=== PATIENT | male | born 1995 | race African-American/Black ===

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

== ENCOUNTER 2017-08-22 12:13 | Emergency (ER) | payer BC, OTHER ==
[2017-08-22 12:14] VITALS: BP 170/65; PULSE 148; RESP 18; TEMP 99.2; O2SAT 96
[2017-08-22] MEDS ORDERED: SODIUM CHLOR 0.9% 1000 ML INJ 1,000 ML IV ONE ×2 (13:16→13:30)
[2017-08-22 13:28] VITALS: BP_SYST 120; BP_SYST 130; BP_DIAS 59; BP_DIAS 63; RESP 20
[2017-08-22] MEDS ORDERED: SODIUM CHLORIDE 0.9% FLUSH 10 ML FLUSH IVF PRN (13:30)
--- NOTE | 2017-08-22 13:59 | RADRPT ---
EXAM DATE/TIME: 08/22/2017 13:45 [facility] COMPARISON: No previous studies available for comparison. INDICATIONS : Dizziness and syncope. Fall, hit posterior head. RADIATION DOSE: 38.65 CTDIvol (mGy) MEDICAL HISTORY : None SURGICAL HISTORY : None. ENCOUNTER: Initial ACUITY: 1 day PAIN SCALE: 0/10 LOCATION: cranial TECHNIQUE: Multiple contiguous axial images were obtained of the head. Using automated exposure control and adj ustment of the mA and/or kV according to patient size, radiation dose was kept as low as reasonably a chievable to obtain optimal diagnostic quality images. DICOM format image data is available electro nically for review and comparison. FINDINGS: CEREBRUM: The ventricles are normal for age. No evidence of midline shift, mass lesion, hemorrhage or acute in farction. No extra-axial fluid collections are seen. POSTERIOR FOSSA: The cerebellum and brainstem are intact. The 4th ventricle is midline. The cerebellopontine angle i s unremarkable. EXTRACRANIAL: The visualized portion of the orbits is intact. SKULL: The calvaria is intact. No evidence of skull fracture. CONCLUSION: No acute intracranial disease. Fortino Box MD on August 22, 2017 at 13:53 Board Certified Radiologist. This report was verified electronically.
[2017-08-22] MEDS ORDERED: KETOROLAC TROMETHAMINE 30 MG/ML (IVP) VIAL IV PUSH ONE (14:00)
[2017-08-22 14:06] LABS: AUTOMATED NEUTROPHIL # 6.6 TH/MM3 (1.8-7.7); BASOPHIL # 0.1 TH/MM3 (0-0.2); BASOPHIL % 0.5 % (0.0-2.0); EOSINOPHIL % 0.5 % (0.0-4.0); HEMATOCRIT 44.3 % (39.0-51.0); HEMO FLAGS DIFF FINAL; LYMPH % 18.1 % (9.0-44.0); LYMPHOCYTE # 1.8 TH/MM3 (1.0-4.8); MEAN CELL VOLUME 87.1 FL (80.0-100.0); MEAN CORPUSCULAR HEMOGLOBIN 30.1 PG (27.0-34.0); MEAN CORPUSCULAR HGB CONC 34.6 % (32.0-36.0); MONO % 13.1 % (0.0-8.0); NEUT % 67.8 % (16.0-70.0); PLATELET COUNT 236 TH/MM3 (150-450); RED BLOOD COUNT 5.09 MIL/MM3 (4.50-5.90); RED CELL DISTRIBUTION WIDTH 12.8 % (11.6-17.2); WHITE BLOOD COUNT 9.8 TH/MM3 (4.0-11.0)
--- NOTE | 2017-08-22 14:10 | PD ---
HPI Chief Complaint: Syncope/Near-Syncope Time Seen by Provider: 13:16 Travel History International Travel<30 days: No Contact w/Intl Traveler<30days: No Traveled to known affect area: No History of Present Illness HPI Patient is a 22-year-old male who presents to emergency room for evaluation of head injury. Patient reports that he has had a sore throat, low-grade fevers, URI for the past few days. Patient reports that he was in his dorm today and suffered a syncopal episode. Patient reports that he did hit his head, he was unsure how long he was unconscious, reports that he came to the emergency room for evaluation as he is concern for possible head injury. Patient reports that he has of moderate headache at this time, reports no fevers, reports chills. Patient denies any chest pain or shortness of breath. Denies any abdominal pain , denies n/v. Patient reports that he is currently not on any medications at this time. Patient reports that he currently does not have any medical problems and does not take any medicines at this time. [facility] Past Medical History Medical History: Denies Significant Hx Diabetes: No Diminished Hearing: No Past Surgical History Surgical History: No Previous Surgery Social History Alcohol Use: No Tobacco Use: No Substance Use: No Allergies-Medications (Allergen,Severity, Reaction): Coded Allergies: No Known Allergies (Unverified , 12/03/16) Reported Meds & Prescriptions Reported Meds & Active Scripts Active No Active Prescriptions or Reported Medications Review of Systems General / Constitutional: No: Fever Eyes: No: Visual changes HENT: Positive: Headaches, Lightheadedness, Sore Throat, Congestion, No: Neck Pain Cardiovascular: No: Chest Pain or Discomfort Respiratory: Positive: Cough, No: Shortness of Breath, Wheezing, Sneezing Gastrointestinal: No: Nausea, Vomiting, Abdominal Pain Genitourinary: No: Dysuria Musculoskeletal: No: Pain Skin: No Rash Neurologic: Positive: Headache, No: Weakness Psychiatric: No: Depression Endocrine: No: Polydipsia Hematologic/Lymphatic: No: Easy Bruising Physical Exam Narrative GENERAL:Mild distress SKIN: Focused skin assessment warm/dry. HEAD: Atraumatic. Normocephalic. EYES: Pupils equal and round. No scleral icterus. No injection or drainage. ENT: No nasal bleeding or discharge. Mucous membranes pink and moist. NECK: Trachea midline. No JVD. Negative Kernig or Brudzinski's sign CARDIOVASCULAR: Regular rate and rhythm. No murmur appreciated. RESPIRATORY: No accessory muscle use. Clear to auscultation. Breath sounds equal bilaterally. GASTROINTESTINAL: Abdomen soft, non-tender, nondistended. Hepatic and splenic margins not palpable. MUSCULOSKELETAL: No obvious deformities. No clubbing. No cyanosis. No edema. NEUROLOGICAL: Awake and alert. No obvious cranial nerve deficits. Motor grossly within normal limits. Normal speech. CN 2-12 grossly intact with no neurological deficits PSYCHIATRIC: Appropriate mood and affect; insight and judgment normal. Data Data Last Documented VS Vital Signs Date Time Temp Pulse Resp B/P (MAP) Pulse Ox O2 Delivery O2 Flow Rate FiO2 08/22/17 14:45 99.3 66 18 100 Room Air Orders Orders Ct Brain W/O Iv Contrast(Rout) (08/22/17 ) Electrocardiogram (08/22/17 ) Electrocardiogram (08/22/17 13:16) Complete Blood Count With Diff (08/22/17 13:16) Comprehensive Metabolic Panel (08/22/17 13:16) Chest, Single Ap (08/22/17 13:16) Ecg Monitoring (08/22/17 13:16) Iv Access Insert/Monitor (08/22/17 13:16) Oximetry (08/22/17 13:16) Sodium Chloride 0.9% Flush (Ns Flush) (08/22/17 13:30) Sodium Chlor 0.9% 1000 Ml Inj (Ns 1000 M (08/22/17 13:16) Influenzae A/B Antigen (08/22/17 13:16) Sodium Chlor 0.9% 1000 Ml Inj (Ns 1000 M (08/22/17 13:30) Orthostatic Vital Signs (08/22/17 13:16) Group A Rapid Strep Screen (08/22/17 13:28) Ketorolac Inj (Toradol Inj) (08/22/17 14:00) Strep Culture (Group A) (08/22/17 13:54) Labs Laboratory Tests Test 08/22/17 13:49 White Blood Count 9.8 TH/MM3 Red Blood Count 5.09 MIL/MM3 Hemoglobin 15.3 GM/DL Hematocrit 44.3 % Mean Corpuscular Volume 87.1 FL Mean Corpuscular Hemoglobin 30.1 PG Mean Corpuscular Hemoglobin Concent 34.6 % Red Cell Distribution Width 12.8 % Platelet Count 236 TH/MM3 Mean Platelet Volume 9.3 FL Neutrophils (%) (Auto) 67.8 % Lymphocytes (%) (Auto) 18.1 % Monocytes (%) (Auto) 13.1 % Eosinophils (%) (Auto) 0.5 % Basophils (%) (Auto) 0.5 % Neutrophils # (Auto) 6.6 TH/MM3 Lymphocytes # (Auto) 1.8 TH/MM3 Monocytes # (Auto) 1.3 TH/MM3 Eosinophils # (Auto) 0.0 TH/MM3 Basophils # (Auto) 0.1 TH/MM3 CBC Comment DIFF FINAL Differential Comment Blood Urea Nitrogen 10 MG/DL Creatinine 1.11 MG/DL Random Glucose 79 MG/DL Total Protein 8.5 GM/DL Albumin 4.3 GM/DL Calcium Level 9.2 MG/DL Alkaline Phosphatase 116 U/L Aspartate Amino Transf (AST/SGOT) 21 U/L Alanine Aminotransferase (ALT/SGPT) 27 U/L Total Bilirubin 1.6 MG/DL Sodium Level 137 MEQ/L Potassium Level 3.7 MEQ/L Chloride Level 104 MEQ/L Carbon Dioxide Level 25.3 MEQ/L Anion Gap 8 MEQ/L Estimat Glomerular Filtration Rate 102 ML/MIN [facility] Medical Decision Making Medical Screen Exam Complete: Yes Emergency Medical Condition: Yes Medical Record Reviewed: Yes Interpretation(s) EKG [id number]: NSR at 65bpm, qt/qtc: 364/375, no acute st or t wave changes Vital Signs Date Time Temp Pulse Resp B/P (MAP) Pulse Ox O2 Delivery O2 Flow Rate FiO2 08/22/17 13:28 64 20 130/59 (82) 101 20 120/63 (82) 08/22/17 12:14 99.2 148 18 170/65 (100) 96 Differential Diagnosis Dehydration, orthostatic hypotension, URI, pneumonia, influenza, electrolyte abnormality, ACS, arrhythmia Narrative Course 22-year-old male who presents to emergency room with complaints of syncopal episode. Patient is nontoxic while in the emergency room, patient with normal neurological exam. Patient with only complaints of headache at this time During the course of the patients emergency department visit, the patients history, examination, and differential diagnosis were reviewed with the patient. The patient was placed on a cardiac cath lab technologist with oximetry and frequent blood pressure monitoring. The patient had IV access obtained and blood work sent for analysis. The patient was initially provided IVF The patients laboratory studies were reviewed and remarkable for: CBC & BMP Diagram 08/22/17 13:49 Total Protein 8.5 H, Albumin 4.3, Calcium Level 9.2, Alkaline Phosphatase 116, Aspartate Amino Transf (AST/SGOT) 21, Alanine Aminotransferase (ALT/SGPT) 27, Total Bilirubin 1.6 H Radiology studies were reviewed and remarkable for: Last Impressions Chest X-Ray 08/22/17 1316 Signed Impressions: Service Date/Time: Tuesday, August 22, 2017 14:27 - CONCLUSION: No acute disease. Fortino Box MD Head CT 08/22/17 0000 Signed Impressions: Service Date/Time: Tuesday, August 22, 2017 13:45 - CONCLUSION: No acute intracranial disease. Fortino Box MD Microbiology Date/Time Source Procedure Growth Status 08/22/17 13:54 Throat Group A Streptococcus Screen Pending Received 08/22/17 13:54 Throat Group A Streptococcus Screen ([facility]) - Final Complete 08/22/17 13:54 Nasal Washing Influenza Types A,B Antigen ([facility]) - Final NEGATIVE FOR FLU A AND B ANTIGEN.... Complete Patient re-evaluated, patient feeling much better. Patient request to be discharged from ER. Patient reports that he feels 100% better at this time. I reviewed all labs and studies with patient in detail, signs and symptoms of when to return to the ER was reviewed with patient. He will follow up with his pcp and will return to ER as needed Diagnosis Primary Impression: Head injury Additional Impressions: Syncope and collapse Viral syndrome Patient Instructions: General Instructions Additional Instructions: Please provide patient with a copy of their lab work and studies at discharge* * Please follow up with your primary care doctor in 2-3 days Return to the ER if symptoms worsen or progress Return to the ER as needed Please drink plenty of fluids Scripts No Active Prescriptions or Reported Meds Disposition: 01 DISCHARGE HOME Condition: Stable iJmLena Aug 22, 2017 14:10
[2017-08-22 14:38] LABS: ALT (GPT) 27 U/L (9-52); ANION GAP 8 MEQ/L (5-15); AST (GOT) 21 U/L (15-39); BICARBONATE 25.3 MEQ/L (21.0-32.0); BLOOD UREA NITROGEN 10 MG/DL (7-18); CHLORIDE 104 MEQ/L (98-107); GLOMERULAR FILTRATION RATE 102 ML/MIN (>89); POTASSIUM 3.7 MEQ/L (3.5-5.1); SODIUM (NA) 137 MEQ/L (136-145)
[2017-08-22 14:40] LABS: ALKALINE PHOSPHATASE 116 U/L (45-117); TOTAL BILIRUBIN ADULT 1.6 MG/DL (0.2-1.0)
--- NOTE | 2017-08-22 14:40 | RADRPT ---
EXAM DATE/TIME: 08/22/2017 14:27 [facility] COMPARISON: No previous studies available for comparison. INDICATIONS : Fever, syncope. MEDICAL HISTORY : None. SURGICAL HISTORY : None. ENCOUNTER: Initial ACUITY: 3 days PAIN SCORE: 0/10 LOCATION: Bilateral chest FINDINGS: A single view of the chest demonstrates the lungs to be symmetrically aerated without evidence of mas s, infiltrate or effusion. The cardiomediastinal contours are unremarkable. Osseous structures are intact. CONCLUSION: No acute disease. Fortino Box MD on August 22, 2017 at 14:38 Board Certified Radiologist. This report was verified electronically.
[2017-08-22 14:45] VITALS: PULSE 66; RESP 18; TEMP 99.3; O2SAT 100
--- NOTE | 2017-08-23 11:35 | EKG ---
Date Performed: 08/22/2017 Time Performed: 12:31:50 PTAGE: 22 years EKG: Sinus rhythm WITH SINUS ARRHYTHMIA MODERATE INTRAVENTRICULAR CONDUCTION DELAY NONSPECIFIC T-WAVE ABNORMALITY BORD SHIV ECG NO PREVIOUS TRACING DOCTOR: Gomez Moreira Interpretating Date/Time 08/23/2017 11:34:29
== END 2017-08-22 16:01 | disposition home or self-care (01) ==
LOC: NEPD 12:13
DX: S09.90XA Unspecified injury of head, initial encounter (principal); R55 Syncope and collapse; B34.9 Viral infection, unspecified; X58.XXXA Exposure to other specified factors, initial encounter; Y92.169 Unspecified place in school dormitory as the place of occurrence of the external cause
CPT/HCPCS: 70450; 71010; 80053; 85025; 87081; 87804; 87880; 93005; 96361; 96374; 99285; J1885; J7030